=== PATIENT | male | born 1965 | race Caucasian/White ===

== ENCOUNTER 2021-07-07 06:49 | Emergency (ER) | payer MEDICAID ==
[~2021-07-07 06:49] MED LIST: Acetaminophen/oxyCODONE 325-5 MG Tab ONE; Morphine 2 MG/ML SYRINGE IM ONE
[2021-07-07] MEDS ORDERED: Ketamine 200 MG/20 ML MDV ONE (07:36)
[2021-07-07] MEDS ORDERED: LORazepam 2 MG/ML SDV ONE (07:58)
[2021-07-07] MEDS ORDERED: Ketamine 200 MG/20 ML MDV IVPUSH ONE ×3 (08:42→08:43)
[2021-07-07] MEDS ORDERED: Morphine 4 MG/ML VIAL IVPUSH ONE (08:42)
[2021-07-07] MEDS ORDERED: LORazepam 2 MG/ML SDV IVPUSH ONE (08:44)
== END 2021-07-07 09:00 | disposition home or self-care (01) ==
LOC: LB.ED 06:49
DX: S82.832A Other fracture of upper and lower end of left fibula, initial encounter for closed fracture (principal); S00.81XA Abrasion of other part of head, initial encounter; W13.2XXA Fall from, out of or through roof, initial encounter
CPT/HCPCS: 27788; 36415; 73600-LT; 73610-LT; 73620-LT; 80048; 80307; 85025; 96372; 96374; 99284-25; A0425; A0429; A9270-GY; J2270

== ENCOUNTER 2021-07-14 16:47 | Emergency (ER) | payer MEDICAID ==
[2021-07-14] MEDS: Ketorolac 60 MG/2 ML SDV ONE (17:53)
[2021-07-14] MEDS: Ketorolac 60 MG/2 ML SDV IM ONE (17:53)
== END 2021-07-14 18:22 | disposition home or self-care (01) ==
LOC: LB.ED 16:47
DX: S82.892A Other fracture of left lower leg, initial encounter for closed fracture (principal); E11.9 Type 2 diabetes mellitus without complications; Z87.891 Personal history of nicotine dependence; W18.30XA Fall on same level, unspecified, initial encounter
CPT/HCPCS: 73610-LT; 96372; 99283; J1885